=== PATIENT | male | born 1975 | race Caucasian/White ===

== ENCOUNTER 2023-11-02 17:45 | Emergency (ER) | payer OTHER, SELFPAY ==
[2023-11-02 18:40] LABS: Absolute Basophils 0.1 K/uL (0-0.5); Absolute Eosinophils 0.1 K/uL (0-0.5); Absolute Monocytes 0.4 K/uL (0.1-1.3); Hemoglobin 14.6 g/dL (13.6-17.9); MCHC 33.5 g/dL (32.0-36.0); RBC Red Blood Cell Count 5.06 M/uL (4.33-5.43)
[2023-11-02 18:46] LABS: Absolute Lymphocytes (CBC) 2.5 K/uL (0.7-4.9); Absolute Neutrophil 2.8 K/uL (1.8-8.0); Eosinophils % 2.1 % (0-4.4); Hematocrit 43.6 % (39.6-49.0); Lymphocytes % 42.5 % (15.3-44.8); MCH 28.9 pg (27.0-35.0); MCV 86.1 fL (80-100); MPV 8.9 fL (7.6-11.3); Monocytes % 6.9 % (3.3-12.3); Neutrophils % 47.5 % (41.7-73.7); Nucleated Red Blood Cells % 0.5 % (0-0); Platelets 290 thou/uL (152-406); Red Cell Distribution Width 14.3 % (12.1-15.2)
[2023-11-02 18:47] LABS: Specific Gravity < 1.005 (1.005-1.030); Urine Bilirubin NEGATIVE (Negative); Urine Blood Negative (Negative); Urine Clarity Clear (Clear); Urine Color Colorless (Yellow); Urine Glucose NEGATIVE (Negative); Urine Ketones NEGATIVE (Negative); Urine Microscopic Reflex YN NO UMIC; Urine Nitrite NEGATIVE (Negative); Urine Protein NEGATIVE (Negative); Urine Urobilinogen Normal (Normal)
[2023-11-02 18:50] LABS: PT Prothrombin Time 11.5 SECONDS (9.5-12.5); PTT, Activated Partial Thromb 36.7 SECONDS (24.3-36.9); Protime INR 1.05
[2023-11-02 19:14] LABS: Barbiturates NEGATIVE (NEGATIVE); Benzodiazepines NEGATIVE (NEGATIVE); Cocaine NEGATIVE (NEGATIVE); METHAMPHETAM NEGATIVE (NEGATIVE); Methadone NEGATIVE (NEGATIVE); Opiates NEGATIVE (NEGATIVE); Phencyclidine NEGATIVE (NEGATIVE); THC Cannibis NEGATIVE (NEGATIVE)
[2023-11-02 19:28] LABS: ALT/SGPT 25 U/L (16-61); AST/SGOT 18 U/L (15-37); Albumin 4.2 g/dL (3.4-5.0); Albumin/Globulin Ratio 1.1 (1.1-1.8); Alkaline Phosphatase 48 U/L (45-117); Anion Gap 7.7 mEq/L (5.0-15.0); BUN Blood Urea Nitrogen 7 mg/dL (7-18); Bicarbonate 29 mEq/L (21-32); Bilirubin Direct < 0.2 mg/dL (0-0.2); Bilirubin Indirect, Calculated 0.1 mg/dL (0.2-0.8); Bilirubin Total 0.3 mg/dL (0.2-1.0); Glomerular Filtration Rate 107 ml/min (=/>90); Glucose Level 84 mg/dL (74-106); Potassium 3.7 mEq/L (3.5-5.1); Protein, Total 8.2 g/dL (6.4-8.2); Sodium Level 138 mEq/L (136-145)
[2023-11-02] MEDS ORDERED: THIAMINE 200 MG/2 ML INJ ONE (19:30)
[2023-11-02] MEDS ORDERED: FOLIC ACID 5 MG/ML VIAL ONE (19:31)
[2023-11-02] MEDS ORDERED: MULTIVITAMINS 10 ML VIAL (INJ) IV ONE (19:31)
[2023-11-02] MEDS ORDERED: NA CHLORIDE 0.9% 1,000 ML ONE (19:32)
--- NOTE | 2023-11-02 19:45 | EDPHYS ---
Physician Documentation [facility] Name: Parag Kay Age: 48 yrs Sex: Male : 1975 Arrival Date: 11/02/2023 Time: 17:45 Bed 17 [facility] MD: ED Physician Maggie Sharma HPI: 11/01 18:25 This 48 yrs old Male presents to ER via [employer] with complaints of Suicidal cp Ideation. 18:25 The patient presents to the emergency department with suicide ideation. cp 18:25 Past psychiatric history: Prior diagnosis: bipolar disorder, depression. Associated cp signs and symptoms: The patient has no apparent associated signs or symptoms. Historical: - Allergies: 19:04 No Known Allergies; me1 - Home Meds: 21:35 Depakote ER 500 mg Oral Tablet, Extended Release 24 hr 2 tabs 2 times per day for me1 epilepsy [Active]; Cymbalta 60 mg oral capsule,delayed release (e.c.) 1 cap 2 times per day [Active]; gabapentin 300 mg oral capsule 1 cap 3 times per day [Active]; Seroquel 300 mg Oral tablet 1 tab 2 times per day for bipolar disorder in remission [Active]; pantoprazole 40 mg oral tablet, delayed release (enteric coated) 1 tab once for gastroesophageal reflux disease [Active]; diphenhydramine HCl 25 mg Oral tablet 1 tab every day at bedtime [Active]; multivitamin with folic acid 400 mcg oral tablet 1 tab once [Active]; trazodone 100 mg Oral tablet 1 tab every day at bedtime for major depressive disorder [Active]; thiamine HCl (vitamin B1) 100 mg Oral tablet 1 tab once [Active]; melatonin 3 mg Oral capsule 2 caps once daily at bedtime [Active]; atorvastatin 40 mg oral tablet 1 tab every day at bedtime [Active]; amlodipine 5 mg tablet 1 tab daily [Active]; folic acid 1 mg Oral tablet 1 tab daily [Active]; - PMHx: 19:04 Seizure; Bipolar disorder; suicide attempts; depression; Anxiety; alcholism; me1 - Immunization history:: Adult Immunizations unknown. - Infectious Disease History:: Denies. - Social history:: Smoking status: Patient reports the use of cigarette tobacco products, denies chronic smoking, but will smoke occasionally. ROS: 18:30 Constitutional: Negative for body aches, chills, fever, poor PO intake, cp 18:30 Eyes: Negative for injury, pain, redness, and discharge, cp 18:30 Cardiovascular: Negative for chest pain, 18:30 Respiratory: Negative for cough, shortness of breath, wheezing, 18:30 Abdomen/GI: Negative for abdominal pain, vomiting, diarrhea, constipation, 18:30 Psych: Positive for alcohol dependence, suicidal ideation, Negative for auditory hallucinations, visual hallucinations, homicidal ideation, 18:30 All other systems are negative, Exam: 18:33 Constitutional: The patient appears in no acute distress, alert, awake, cp non-diaphoretic, non-toxic, well developed, well nourished, 18:33 Head/Face: Normocephalic, atraumatic. cp 18:33 Eyes: Periorbital structures: appear normal, Conjunctiva: normal, no exudate, no injection, Sclera: no appreciated abnormality, Lids and lashes: appear normal, bilaterally, 18:33 ENT: External ear(s): are unremarkable, Nose: is normal, Mouth: Lips: moist, Oral mucosa: pink and intact, moist, Posterior pharynx: Airway: no evidence of obstruction, patent, 18:33 Chest/axilla: Inspection: normal, 18:33 Cardiovascular: Rate: normal, Rhythm: regular, Edema: is not appreciated, JVD: is not appreciated, 18:33 Respiratory: the patient does not display signs of respiratory distress, Respirations: normal, no use of accessory muscles, no retractions, labored breathing, is not present, Breath sounds: are clear throughout, no decreased breath sounds, no stridor, 18:33 Abdomen/GI: Inspection: abdomen appears normal, 18:33 Neuro: Orientation: to person, place \T\ time. Mentation: is normal, Motor: moves all fours, strength is normal, Gait: is steady, at a normal pace, without difficulty, 23:28 ECG was reviewed by the Attending Physician. cp Vital Signs: 18:02 BP 101 / 55; Pulse 78; Resp 16; Temp 98.4; Pulse Ox 95% on R/A; me1 19:30 BP 103 / 57; Pulse 74; Resp 14; Temp 98.1; Pulse Ox 96% on R/A; me1 06/04 10:17 BP 141 / 95 LA Sitting (auto/reg); Pulse 78 MON; Resp 15 S; Pulse Ox 99% on R/A; bc6 18:00 BP 119 / 66; Pulse 72; Resp 16; Temp 98(O); Pulse Ox 97% on R/A; Pain 0/10; tl4 19:30 BP 115 / 76; Pulse 74; Resp 15; Temp 96.8; Pulse Ox 94% ; rc3 18:00 Pain Scale: Adult tl4 MDM: 11/01 18:03 Patient medically screened. / 00:10 Data reviewed: vital signs, nurses notes, lab test result(s), EKG. cp 11/01 18:18 Order name: Acetaminophen; Complete Time: 19:43 cp 11/01 18:18 Order name: Basic Metabolic Panel; Complete Time: 19:43 cp 11/01 18:18 Order name: CBC with Diff; Complete Time: 19:22 cp 11/01 18:18 Order name: ETOH Level; Complete Time: 19:22 cp 11/01 19:22 Interpretation: Abnormal: ETOH 151. cp 11/01 18:18 Order name: Hepatic Function; Complete Time: 19:43 cp 11/01 18:18 Order name: PT-INR; Complete Time: 19:22 cp 11/01 18:18 Order name: Ptt, Activated; Complete Time: 19:22 cp 11/01 18:18 Order name: Salicylate; Complete Time: 19:43 cp 11/01 18:18 Order name: Urinalysis w/ reflexes; Complete Time: 19:22 cp 11/01 18:18 Order name: Urine Drug Screen; Complete Time: 19:22 cp 11/01 23:09 Order name: ETOH Level; Complete Time: 00:10 cp 11/02 00:10 Interpretation: Reviewed. cp 11/01 18:18 Order name: EKG - Nurse/Tech; Complete Time: 18:37 cp 11/01 18:18 Order name: IV Saline Lock; Complete Time: 18:37 cp 11/01 18:18 Order name: Labs collected and sent; Complete Time: 18:37 cp 11/01 18:18 Order name: Suicide Precautions; Complete Time: 19:08 cp 11/01 18:18 Order name: Suicide Screening ([place]); Complete Time: 19:41 cp 11/01 19:44 Order name: Vital Signs; Complete Time: 23:18 cp EC/03 23:28 Rate is 68 beats/min. Rhythm is regular. TX interval is normal. QRS interval is normal. cp QT interval is normal. T waves are Inverted in lead aVR. Interpreted by me. Reviewed by me. Administered Medications: 19:39 Drug: Banana Bag - (Multivitamin IV 1 amp, NS 0.9% IV 1000 ml, Thiamine IV 100 mg, me1 foLIC Acid IVPB 1 mg) IV at 250 ml/hr once Route: IV; Rate: 250 ml/hr; Site: right forearm; 23:17 Follow up: Response: No adverse reaction; IV Status: Completed infusion; IV Intake: me1 1000ml 11/02 01:27 Drug: Ondansetron PO 4 mg PO once Route: PO; jw7 03:08 Follow up: Response: No adverse reaction; Marked relief of symptoms; Nausea is decreasedjw7 01:27 Drug: diphenhydrAMINE PO 25 mg PO once Route: PO; jw7 03:08 Follow up: Response: No adverse reaction; Marked relief of symptoms jw7 10:15 Drug: Valproic Acid PO 1000 mg PO once Route: PO; kc6 15:12 Follow up: Response: No adverse reaction tl4 10:15 CANCELLED (Other Intervention Used): mg PO once kc6 10:16 Drug: amLODIPine PO 5 mg PO once Route: PO; kc6 15:12 Follow up: Response: No adverse reaction tl4 10:16 Drug: Gabapentin PO 400 mg PO once Route: PO; kc6 15:12 Follow up: Response: No adverse reaction tl4 10:21 Drug: Cymbalta PO 60 mg PO once Route: PO; kc6 15:12 Follow up: Response: No adverse reaction tl4 10:34 Drug: SEROquel PO 300 mg PO once Route: PO; kc6 15:12 Follow up: Response: No adverse reaction tl4 Disposition Summary: 11/02/23 19:45 Transfer Ordered Notes: Transfer Location: Psych Facility cp Reason: Higher level of care cp Condition: Stable cp Problem: new cp Symptoms: are unchanged cp Accepting Physician: doctor(11/03/23 19:37) tl4 Diagnosis - Suicidal ideations cp Forms: - Medication Reconciliation Form cp - SBAR form cp Signatures: Dispatcher [employer] EDMS Page, SHANTAL Travis cp, Jodi RN RN jw7 Ijeoma Jones RN RN kc6 Santa Kincaid, RN RN me1 Narciso Payton RN RN tl4 Corrections: (The following items were deleted from the chart) 10:15 10:10 Gabapentin PO 300 mg PO once ordered. kc6 kc6 10:15 10:15 Gabapentin PO 300 mg PO once ordered. kc6 kc6 19:37 11/01 19:45 doctor jackelyn tl4
--- NOTE | 2023-11-02 19:45 | ER ---
Nurse's Notes [facility] Name: Parag Kay Age: 48 yrs Sex: Male : 1975 Arrival Date: 11/02/2023 Time: 17:45 Bed 17 Private MD: Diagnosis: Suicidal ideations Presentation: 11/01 18:05 Chief complaint: Patient states: he has been having suicidal thoughts and wants to get id1 help. Coronavirus screen: Vaccine status: Patient reports receiving the 2nd dose of the covid vaccine. Ebola Screen: No symptoms or risks identified at this time. Initial Sepsis Screen: Does the patient meet any 2 criteria? No. Patient's initial sepsis screen is negative. Does the patient have a suspected source of infection? No. Patient's initial sepsis screen is negative. Risk Assessment: Do you want to hurt yourself or someone else? Patient reports desire/thoughts of hurting themselves or someone else. Provider notified. Onset of symptoms was October 31, 2023. 18:05 Method Of Arrival: Law Enforcement: Vamsi TRIPLETT [facility] 18:05 Acuity: ANGELINA 2 me1 Triage Assessment: 19:04 General: Appears well groomed, well developed, well nourished, Behavior is cooperative, me1 flat, quiet, Reports started having suicidal ideation 2 days ago and it continues to get worse. Plan would be to walk out in front of a train or truck. Pain: Denies pain. EENT: No signs and/or symptoms were reported regarding the EENT system. Neuro: Level of Consciousness is awake, alert, obeys commands, Oriented to person, place, time, situation, Appropriate for age. Cardiovascular: Patient's skin is warm and dry. Respiratory: Airway is patent Respiratory effort is even, unlabored, Respiratory pattern is regular, symmetrical. GI: No signs and/or symptoms were reported involving the gastrointestinal system. : No signs and/or symptoms were reported regarding the genitourinary system. Derm: Skin is intact, is healthy with good turgor, Skin is pink, warm \\T\\ dry. Musculoskeletal: No signs and/or symptoms reported regarding the musculoskeletal system. Historical: - Allergies: 19:04 No Known Allergies; me1 - Home Meds: 21:35 Depakote ER 500 mg Oral Tablet, Extended Release 24 hr 2 tabs 2 times per day for me1 epilepsy [Active]; Cymbalta 60 mg oral capsule,delayed release (e.c.) 1 cap 2 times per day [Active]; gabapentin 300 mg oral capsule 1 cap 3 times per day [Active]; Seroquel 300 mg Oral tablet 1 tab 2 times per day for bipolar disorder in remission [Active]; pantoprazole 40 mg oral tablet, delayed release (enteric coated) 1 tab once for gastroesophageal reflux disease [Active]; diphenhydramine HCl 25 mg Oral tablet 1 tab every day at bedtime [Active]; multivitamin with folic acid 400 mcg oral tablet 1 tab once [Active]; trazodone 100 mg Oral tablet 1 tab every day at bedtime for major depressive disorder [Active]; thiamine HCl (vitamin B1) 100 mg Oral tablet 1 tab once [Active]; melatonin 3 mg Oral capsule 2 caps once daily at bedtime [Active]; atorvastatin 40 mg oral tablet 1 tab every day at bedtime [Active]; amlodipine 5 mg tablet 1 tab daily [Active]; folic acid 1 mg Oral tablet 1 tab daily [Active]; - PMHx: 19:04 Seizure; Bipolar disorder; suicide attempts; depression; Anxiety; alcholism; me1 - Immunization history:: Adult Immunizations unknown. - Infectious Disease History:: Denies. - Social history:: Smoking status: Patient reports the use of cigarette tobacco products, denies chronic smoking, but will smoke occasionally. Screenin:[facility] Fall Risk Assessment (Adult) History of falling in the last 3 months, me1 including since admission No falls in past 3 months (0 pts) Confusion or Disorientation No (0 pts) Intoxicated or Sedated No (0 pts) Impaired Gait No (0 pts) Mobility Assist Device Used No (0 pt) Altered Elimination No (0 pt) Score/Fall Risk Level 0 - 2 = Low Risk Maintained a safe environment, Provided non-skid footwear, Hourly rounding (assess needs \\T\\ fall precautionary measures) done. Abuse screen: Denies threats or abuse. Nutritional screening: No deficits noted. Tuberculosis screening: No symptoms or risk factors identified. Assessment: 19:07 General: See triage assessment, . me1 11/02 00:45 General: Appears in no apparent distress. comfortable, Behavior is calm, cooperative, jw7 appropriate for age. Pain: Denies pain. Neuro: [place] Agitation-Sedation Scale (RASS): 0 - Alert and Calm Level of Consciousness is awake, alert, obeys commands, Oriented to person, place, time, situation, Appropriate for age. Cardiovascular: Heart tones S1 S2 present Capillary refill < 3 seconds Clubbing of nail beds is absent JVD is absent Patient's skin is warm and dry. 00:45 Respiratory: Airway is patent Trachea midline Respiratory effort is even, unlabored, jw7 Respiratory pattern is regular, symmetrical, Breath sounds are clear bilaterally. GI: Abdomen is round non-distended, Bowel sounds present X 4 quads. Abd is soft and non tender X 4 quads. : No deficits noted. No signs and/or symptoms were reported regarding the genitourinary system. EENT: No deficits noted. No signs and/or symptoms were reported regarding the EENT system. Derm: Skin is intact, is healthy with good turgor, Skin is dry, Skin is normal, Skin temperature is warm. Musculoskeletal: Circulation, motion, and sensation intact. Range of motion: intact in all extremities. 02:00 Reassessment: Patient appears in no apparent distress at this time. No changes from jw7 previously documented assessment. Patient and/or family updated on plan of care and expected duration. Pain level reassessed. Patient is alert, oriented x 3, equal unlabored respirations, skin warm/dry/pink. 03:00 Reassessment: Patient appears in no apparent distress at this time. No changes from jw7 previously documented assessment. Patient and/or family updated on plan of care and expected duration. Pain level reassessed. Patient is alert, oriented x 3, equal unlabored respirations, skin warm/dry/pink. 04:00 Reassessment: Patient appears in no apparent distress at this time. No changes from jw7 previously documented assessment. Patient and/or family updated on plan of care and expected duration. Pain level reassessed. Patient is alert, oriented x 3, equal unlabored respirations, skin warm/dry/pink. 05:00 Reassessment: Patient appears in no apparent distress at this time. No changes from jw7 previously documented assessment. Patient and/or family updated on plan of care and expected duration. Pain level reassessed. Patient is alert, oriented x 3, equal unlabored respirations, skin warm/dry/pink. 06:00 Reassessment: Patient appears in no apparent distress at this time. No changes from jw7 previously documented assessment. Patient and/or family updated on plan of care and expected duration. Pain level reassessed. Patient is alert, oriented x 3, equal unlabored respirations, skin warm/dry/pink. 07:00 Reassessment: Patient appears in no apparent distress at this time. No changes from kc6 previously documented assessment. Patient and/or family updated on plan of care and expected duration. Pain level reassessed. Patient is alert, oriented x 3, equal unlabored respirations, skin warm/dry/pink. 08:00 Reassessment: Patient appears in no apparent distress at this time. No changes from kc6 previously documented assessment. Patient and/or family updated on plan of care and expected duration. Pain level reassessed. Patient is alert, oriented x 3, equal unlabored respirations, skin warm/dry/pink. 09:00 Reassessment: Patient appears in no apparent distress at this time. No changes from kc6 previously documented assessment. Patient and/or family updated on plan of care and expected duration. Pain level reassessed. Patient is alert, oriented x 3, equal unlabored respirations, skin warm/dry/pink. 10:00 Reassessment: Patient appears in no apparent distress at this time. No changes from kc6 previously documented assessment. Patient and/or family updated on plan of care and expected duration. Pain level reassessed. Patient is alert, oriented x 3, equal unlabored respirations, skin warm/dry/pink. 10:08 Reassessment: PT REQUESTING HIS MORNING MEDS. OK PER DR. PERERA. kc6 12:08 Reassessment: No changes from previously documented assessment. Patient and/or family tl4 updated on plan of care and expected duration. Pain level reassessed. Patient is alert, oriented x 3, equal unlabored respirations, skin warm/dry/pink. Pt resting comfortably. Pt denies any needs at this time. 1:1 observation continued. Room safety check completed. 13:00 Reassessment: No changes from previously documented assessment. Patient and/or family tl4 updated on plan of care and expected duration. Pain level reassessed. Patient is alert, oriented x 3, equal unlabored respirations, skin warm/dry/pink. Pt denies any needs at this time. 1:1 observation continued. Will continue to monitor. 14:00 Reassessment: No changes from previously documented assessment. Patient and/or family tl4 updated on plan of care and expected duration. Pain level reassessed. Patient is alert, oriented x 3, equal unlabored respirations, skin warm/dry/pink. Pt denies any needs at this time. 1:1 observation maintained. Will continue to monitor. 15:00 Reassessment: No changes from previously documented assessment. Patient and/or family tl4 updated on plan of care and expected duration. Pain level reassessed. Patient is alert, oriented x 3, equal unlabored respirations, skin warm/dry/pink. Pt sleeping, no needs identified. 1:1 observation maintained. Will continue to monitor. 16:00 Reassessment: Patient appears in no apparent distress at this time. No changes from tl4 previously documented assessment. Patient and/or family updated on plan of care and expected duration. Pain level reassessed. Patient is alert, oriented x 3, equal unlabored respirations, skin warm/dry/pink. Pt eating dinner. Pt denies any needs at this time. 1:1 observation maintained. Will continue to monitor. 17:00 Reassessment: Patient appears in no apparent distress at this time. No changes from tl4 previously documented assessment. Patient and/or family updated on plan of care and expected duration. Pain level reassessed. Patient is alert, oriented x 3, equal unlabored respirations, skin warm/dry/pink. Pt resting quietly in bed, denies any needs at this time. 1:1 observation maintained. Will continue to monitor. 18:00 Reassessment: Patient appears in no apparent distress at this time. No changes from tl4 previously documented assessment. Patient and/or family updated on plan of care and expected duration. Pain level reassessed. Patient is alert, oriented x 3, equal unlabored respirations, skin warm/dry/pink. Pt resting quietly, denies any needs at this time. 1:1 observation maintained. Will continue to monitor. 18:04 General: Nurse to Nurse report provided to Hector at [facility]. Clinicals confirmed kb3 as received. Awaiting MD acceptance and MOT information. ETA approximately 5-10 minutes. 19:00 Reassessment: Patient appears in no apparent distress at this time. No changes from tl4 previously documented assessment. Patient and/or family updated on plan of care and expected duration. Pain level reassessed. Patient is alert, oriented x 3, equal unlabored respirations, skin warm/dry/pink. Pt denies any needs. 1:1 observation maintained. Will continue to monitor. 19:36 Reassessment: Report to [facility]. tl4 Psych: 11/01 21:04 [place] Suicide Severity Screening: In the past month, have you wished you were me1 or wished you could go to sleep and not wake up? Patient responds "yes." Based off the client's responses additional C-SSRS screening is required. "In the past month, have you actually had any thoughts of killing yourself?" Patient responds "yes." Based off the client's response additional [place] suicide severity screening questions to be further documented on paper forms. "In your lifetime, have you ever done anything, started to do anything, or prepared to do anything to end your life?" Patient responds "yes." Patient reports suicidal intent occurred greater than 3 months prior. patient states he has attempted suicide before but that it has been about 4 years ago. States he has had trouble getting his cymbalta and seroquel and that his suicidal ideations started 2 days ago. States he has thought about getting a bottle of whiskey and going to the train tracks to wait for a train to step in front of. States he has considered stepping out in front of a truck but he doesn't want to hurt anyone in the process. Subjective: Patient's mood is sad, hopeless, Delusions are denied, Hallucinations are denied Having thoughts of suicide. Plan for suicide is to step out in front of a train. Objective: Patient is cooperative, Speech is normal, Affect is flat. Interventions: Removed personal items and placed in bag. Patient placed in hospital gown. Searched person for dangerous items. Urine collected and sent for urine drug test. Belonging list filled out. Safety Checks: Personal items have been removed. Pt has been placed in a hallway bed/chair. No visitors are present at this time. Patient uses Last use was 5 hours ago. Commitment: Patient will be a voluntary commitment. Vital Signs: 18:02 BP 101 / 55; Pulse 78; Resp 16; Temp 98.4; Pulse Ox 95% on R/A; me1 19:30 BP 103 / 57; Pulse 74; Resp 14; Temp 98.1; Pulse Ox 96% on R/A; me1 11/02 10:17 BP 141 / 95 LA Sitting (auto/reg); Pulse 78 MON; Resp 15 S; Pulse Ox 99% on R/A; bc6 18:00 BP 119 / 66; Pulse 72; Resp 16; Temp 98(O); Pulse Ox 97% on R/A; Pain 0/10; tl4 19:30 BP 115 / 76; Pulse 74; Resp 15; Temp 96.8; Pulse Ox 94% ; rc3 18:00 Pain Scale: Adult tl4 ED Course: 11/01 18:02 Patient arrived in ED. bc6 18:03 Thaddeus Kong PA is PHCP. cp 18:03 Maggie Sharma MD is Attending Physician. cp 18:37 Acetaminophen Sent. bc6 18:37 Basic Metabolic Panel Sent. bc6 18:37 CBC with Diff Sent. bc6 18:37 ETOH Level Sent. bc6 18:37 Hepatic Function Sent. bc6 18:37 PT-INR Sent. bc6 18:37 Ptt, Activated Sent. bc6 18:37 Salicylate Sent. bc6 18:37 Urinalysis w/ reflexes Sent. bc6 18:37 Urine Drug Screen Sent. bc6 18:37 Initial lab(s) drawn, by id, sent to lab. Urine collected: clean catch specimen, clear. 6 Inserted saline lock: 20 gauge in right forearm, using aseptic technique. Blood collected. 18:49 Santa Kincaid, RN is Primary Nurse. id1 19:04 Triage completed. id1 19:04 Arm band placed on Patient placed in an exam room. id1 19:07 No provider procedures requiring assistance completed. me1 19:07 Patient has correct armband on for positive identification. Bed in low position. Call [facility] light in reach. Side rails up X 1. Provided Education on: POC. Verbalized understanding. . 11/02 00:07 Safety checks: Items removed: yes. Door open/sign placed on door: no. Other: door vk closed curtain open Family/friend present: no. Sitter present: Yes. 00:11 Called [facility] for pt evaluation. rv1 00:17 Assisted to bathroom. vk 00:28 [facility] advised that it would be a few hours before a screener would be available rv1 due to being at other facilities. 04:11 [facility] SPEAKING WITH PATIENT. vk 04:52 [facility] COMPLETED VISIT WITH PATIENT. vk 04:56 Warm blanket given. vk 04:57 Diet: Patient given snack. Patient given water. Tolerated well. vk 04:57 [facility] recommends Inpatient. rv1 04:59 Faxed pt clinicals to [facility]. rv1 07:00 Safety Checks: Personal items have been removed. The door is not opened, nor is patient kc6 placed in a hallway bed/chair. There are no family/friend visitors at this time Sitter present at this time. 07:00 Report received from Charisma Epstein RN. kc6 07:00 Patient is placed in psych hold. kc6 07:30 Diet: Patient given a regular meal tray. kc6 10:06 Diet: Patient given a regular meal tray. Tolerated well. Sitter at bedside. bc6 18:56 pt accepted in transfer to [facility] by dr Cui admin approval given by Ibeth Montes De Oca. 19:37 IV discontinued, intact, bleeding controlled, No redness/swelling at site. Pressure tl4 dressing applied. Administered Medications: 11/01 19:39 Drug: Banana Bag - (Multivitamin IV 1 amp, NS 0.9% IV 1000 ml, Thiamine IV 100 mg, me1 foLIC Acid IVPB 1 mg) IV at 250 ml/hr once Route: IV; Rate: 250 ml/hr; Site: right forearm; 23:17 Follow up: Response: No adverse reaction; IV Status: Completed infusion; IV Intake: me1 1000ml 11/02 01:27 Drug: Ondansetron PO 4 mg PO once Route: PO; jw7 03:08 Follow up: Response: No adverse reaction; Marked relief of symptoms; Nausea is decreasedjw7 01:27 Drug: diphenhydrAMINE PO 25 mg PO once Route: PO; jw7 03:08 Follow up: Response: No adverse reaction; Marked relief of symptoms jw7 10:15 Drug: Valproic Acid PO 1000 mg PO once Route: PO; kc6 15:12 Follow up: Response: No adverse reaction tl4 10:15 CANCELLED (Other Intervention Used): [id number] mg PO once kc6 10:16 Drug: amLODIPine PO 5 mg PO once Route: PO; kc6 15:12 Follow up: Response: No adverse reaction tl4 10:16 Drug: Gabapentin PO 400 mg PO once Route: PO; kc6 15:12 Follow up: Response: No adverse reaction tl4 10:21 Drug: Cymbalta PO 60 mg PO once Route: PO; kc6 15:12 Follow up: Response: No adverse reaction tl4 10:34 Drug: SEROquel PO 300 mg PO once Route: PO; kc6 15:12 Follow up: Response: No adverse reaction tl4 Medication: 11/01 19:07 VIS not applicable for this client. me1 Intake: 23:17 IV: 1000ml; Total: 1000ml. me1 Outcome: 19:45 ER care complete, transfer ordered by MD. hayden 11/02 19:37 Transferred by ground EMS tl4 Condition: stable Instructed on the need for transfer, 19:37 Patient left the ED. tl4 Signatures: Rekha Galeas Corey, PA PA cp Waits, Jodi, RN RN jw7 Ijeoma Jones RN DARON kc6 Lyly Lam RN DARON kb3 Tash Maradiaga rv1 Suki Erickson6 Santa Kincaid RN RN me1 Narciso Payton RN RN tl4 Soha Bo Rebecca rc3 Corrections: (The following items were deleted from the chart) 14:31 13:00 Reassessment: No changes from previously documented assessment. Patient and/or tl4 family updated on plan of care and expected duration. Pain level reassessed. Patient is alert, oriented x 3, equal unlabored respirations, skin warm/dry/pink. Pt denies any needs at this time. 1:1 monitoring continued. Will continue to monitor tl4 14:32 12:08 Reassessment: No changes from previously documented assessment. Patient and/or tl4 family updated on plan of care and expected duration. Pain level reassessed. Patient is alert, oriented x 3, equal unlabored respirations, skin warm/dry/pink. Pt resting comfortably. Pt denies any needs at this time. 1:1 monitoring continued. Room safety check completed. tl4
[2023-11-03] MEDS ORDERED: DIPHENHYDRAMINE 25 MG TAB/CAP ONE (01:19)
[2023-11-03] MEDS ORDERED: ONDANSETRON 4 MG (ODT) TAB ONE (01:19)
[2023-11-03] MEDS ORDERED: DULOXETINE 30 MG CAP PO ONE (10:18)
[2023-11-03] MEDS ORDERED: QUETIAPINE 100MG TAB PO SCH (11:00)
--- NOTE | 2023-11-03 13:18 | EKG ---
Test Date: 2023-11-02 Test Time: 23:21:00 Regulatory Affairs Portfolio Leader: YAIR MEASUREMENT RESULTS: Intervals: Rate: 68 WI: 174 QRSD: 96 QT: 378 QTc: 401 [place]: P: 57 WI: 174 QRS: 78 T: 19 INTERPRETIVE STATEMENTS: Normal sinus rhythm Normal ECG No previous ECG available for comparison Electronically Signed On 11-03-23 13:16:18 CDT by German Ruiz
[2023-11-03 20:44] VITALS: BP 115/76; TEMP 96.8; O2SAT 94
== END 2023-11-03 19:37 ==
LOC: ER 17:45
DX: R45.851 Suicidal ideations (principal); F10.20 Alcohol dependence, uncomplicated; F31.9 Bipolar disorder, unspecified
CPT/HCPCS: 96365; 93005; 85025; 80048; 36415; 85610; 80076; 85730; 81003; 80307; 99285; 96366; 80143; 80179; 82077 ×2; J3411; Q0162; J7030